=== PATIENT | female | born 1940 | race Caucasian/White ===

== ENCOUNTER → 2018-11-20 | Outpatient (CLI) | payer OTHER ==
[~2018-11-20] MED LIST: ALBUTEROL0.09 MG/A2 INH; AMLODIPINE BES2.5 MG PO; BAYER ASPIRIN C81 MG PO; LEVOFLOXACIN500 MG PO; LISINOPRIL-HCT1 EACH PO; PREDNICOT10 MG PO; SIMVASTATIN40 MG PO; TENORMIN50 MG PO; ZOCOR20 MG PO
== END | disposition home or self-care (01) ==
LOC: MAMMO 07:27
DX: Z12.31 Encounter for screening mammogram for malignant neoplasm of breast (principal)